=== PATIENT | male | born 1960 | race Caucasian/White ===

== ENCOUNTER → 2018-12-07 | Outpatient (CLI) | payer MEDICARE ==
--- NOTE | ~2018-12-07 | EKG ---
[place], [place] ELECTROCARDIOGRAM REPORT NAME: JOSÉ RUTHERFORD UNIT #: [id number] ROOM: DOCTOR: EPIPHANY DRAFT REPORT BIRTHDATE: [birth year] [facility] Test Date: 2018-12-07 Test Time: 11:36:43 Pat Name: JOSÉ RUTHERFORD Department: Room: Gender: Tool Grinding Technician: Elly Coughlin : 1960 Requested By: GEOFF MARQUIS Order Number: [id number] Reading MD: Gael Vera MD Measurements Intervals [place] Rate: 57 P: 71 OK: 155 QRS: 64 QRSD: 99 T: 64 QT: 428 QTc: 417 Interpretive Statements Sinus rhythm Baseline wander in lead(s) V2 Nonspecific ST T changes Electronically Signed On 12-08-2018 4:45:17 PDT by Gael Vera MD CM:EKGRPT:ELECTROCARDIOGRAM REPORT [id number] GEOFF WHITLOCK DRAFT REPORT GEOFF MARQUIS
[2018-12-07 11:26] LABS: BASO % 0.5 % (0.0-1.0); EOS % 0.5 % (1.0-4.0); HEMATOCRIT 43.9 % (42.0-52.0); HEMOGLOBIN 15.1 g/dl (14.0-18.0); LYMPH # 1.3 10*3/uL (1.3-4.4); LYMPH % 14.9 % (27.0-41.0); MEAN CELL VOLUME 91.1 fl (80.0-94.0); MEAN CORPUSCULAR HGB 31.3 pg (27.0-31.0); MEAN CORPUSCULAR HGB CONC 34.4 g/dl (33.0-37.0); MEAN PLATELET VOLUME 10.6 fl (9.6-12.3); MONO # 0.5 10*3/uL (0.1-1.0); MONO % 5.8 % (3.0-9.0); NEUT # 6.6 10*3/uL (2.3-7.9); NEUT % 77.9 % (47.0-73.0); PLATELET COUNT AUTOMATED 249 10*3/uL (130-400); RED BLOOD COUNT 4.82 10*6/uL (4.50-5.90); RED CELL DISTRI WIDTH 13.1 % (0-14.5); WHITE BLOOD COUNT 8.5 10*3/uL (4.8-10.8)
[2018-12-07 11:39] LABS: BILIRUBIN NEGATIVE (NEGATIVE); BLOOD NEGATIVE (NEGATIVE); CLARITY CLEAR (CLEAR); COLOR YELLOW (YELLOW); GLUCOSE NEGATIVE (NEGATIVE); KETONE NEGATIVE (NEGATIVE); LEUKO ESTERASE NEGATIVE (NEGATIVE); NITRITE NEGATIVE (NEGATIVE); SPECIFIC GRAVITY <= 1.005 (1.005-1.030); UROBILINOGEN 0.2 E.U./dl (0.2-1.0)
[2018-12-07 11:53] LABS: ALKALINE PHOSPHATASE 73 U/L (45-117); BUN 11 mg/dl (7-24); CHLORIDE 107 mmol/L (98-107); CHOLESTEROL 272 mg/dL (<200); CREATININE 1.05 mg/dL (0.70-1.30); HDL CHOLESTEROL 43 mg/dl (40-60); LDL CHOLESTEROL 201 mg/dL (9-159); POTASSIUM 4.1 mmol/L (3.5-5.1); SGOT/AST 12 IU/L (3-35); SGPT/ALT 19 U/L (12-78); SODIUM 142 mmol/L (136-145); TOTAL PROTEIN 7.8 gm/dL (6.4-8.2); TRIGLYCERIDES 141 mg/dl (<150); VLDL CHOLESTEROL 28 mg/dL (6-40)
[2018-12-07 13:51] LABS: EPITHELIAL CELLS 0-2
== END | disposition home or self-care (01) ==
LOC: LAB 10:51
PROVIDERS: Nurse Practitioner Primary Care
DX: Z12.5 Encounter for screening for malignant neoplasm of prostate (principal); I10 Essential (primary) hypertension; R39.81 Functional urinary incontinence; Z79.899 Other long term (current) drug therapy